=== PATIENT | male | born 1990 | race African-American/Black ===

== ENCOUNTER 2016-09-10 15:39 | Emergency (ER) | payer SELFPAY ==
[~2016-09-10 15:39] MED LIST: DENIES
[2016-09-10 16:49] LABS: ASCORBIC ACID (UR NOT ORDER) NEG (NEG); BILIRUBIN, URINE NEGATIVE (NEG); ER URINALYSIS TAT 0 Hrs 18 Mins; KETONE, URINE NEGATIVE (NEG); LEUKOCYTE ESTERASE(NOT OR NEG (NEG); NITRITE (URINE) NEG (NEG); WBC (NOT ORDERED) (RFLEX) < 1 (0-5)
[2016-09-10 18:23] LABS: CHLAMYDIA TRACH PCR NOT DETECTED (NOT DETEC); GC PCR NOT DETECTED (NOT DETECT); SOURCE: MALE URINE
== END 2016-09-10 17:35 | disposition home or self-care (01) ==
LOC: ER 15:39
PROVIDERS: Physician Assistant Medical
DX: R36.9 Urethral discharge, unspecified (principal); F17.200 Nicotine dependence, unspecified, uncomplicated
CPT/HCPCS: 81001; 87491; 87591; 96372; 99283; A9270-GY; J0696